=== PATIENT | female | born 1960 | race Caucasian/White ===

== ENCOUNTER 2023-12-22 12:27 | Emergency (ER) | payer MEDICAID, SELFPAY ==
[2023-12-22] VITALS (10 sets, daily range): BP systolic 150–188; BP diastolic 80–107; PULSE 82–99; RESP 11–31; TEMP 36.4; O2SAT 100
--- NOTE | 2023-12-22 12:15 | RT.EKG_ITS ---
APPROVED REPORT Exam: Resting ECG Reason for Exam: chest pain Patient Location: E HR:80 bpm ECG Measurements Heart Rate 80 AXIS WI 164 P 27 QRSd 81 QRS 40 QT 369 T 39 QTc 427 Conclusion Sinus rhythm...normal P axis, V-rate 60- 99 sinus rhtyhm, normal axis, normal intervals, non ischemic
--- NOTE | 2023-12-22 12:54 | ED.GENADUL_ITS ---
HPI General Date/Time Provider Initiated Documentation: 12/22/23 12:52 . HPI Narrative: 63-year-old female presents with anterior/epigastric chest discomfort over the last several hours nonradiating nonexertional nonpleuritic now resolving. Took aspirin before arrival. Denies history of coronary disease or thromboembolic disease. Related Data Home Medications Medication Instructions Recorded Confirmed aspirin 81 mg tablet,delayed 81 mg PO DAILY 12/22/23 12/22/23 release metoprolol succinate 50 mg capsule 50 mg PO DAILY 12/22/23 12/22/23 sprinkle, ext. release 24 hr (Kapspargo Sprinkle) Allergies Allergy/AdvReac Type Severity Reaction Status Date / Time penicillian Allergy Intermediate swelling Uncoded 12/22/23 12:38 General Stated Complaint: Chest Pain BERT: 3 Review of Systems Narrative: Review of Systems Constitutional: negative Eyes: negative ENT: negative Cardiovascular: Chest pain Respiratory: negative Gastrointestinal: negative : negative Musculoskeletal: negative Skin: negative Neurologic: negative Psych: negative Exam Narrative Exam Narrative: Physical Examination General: alert, awake, cooperative, resting comfortably, no acute distress HEENT: normocephalic, atraumatic; PERRL, EOM intact, conjunctiva normal; no nasal discharge; moist mucous membranes, oral and pharyngeal mucosa normal, tolerating secretions Neck: supple, trachea midline; full ROM Chest: normal to inspection Respiratory: normal respiratory effort, speaking in full sentences, clear to auscultation, no wheezing, rales or rhonchi Cardiac: regular rate, regular rhythm, S1S2 intact, no murmurs rubs or gallops GI: abdomen soft, non-tender, non-distended; no palpable mass or hepatosplenomegaly Skin: no lesions, rashes or trauma appreciated Neuro: AAOx3, normal speech, moving all extremities Psych: Appropriate mood and affect Course Vital Signs Vital signs: Vital Signs Temperature 36.4 C L 12/22/23 12:33 Pulse 92 H 12/22/23 12:33 Respiratory Rate 18 12/22/23 12:33 Blood Pressure 188/107 H 12/22/23 12:33 Pulse Oximetry 100 12/22/23 12:33 Temperature 36.4 C L 12/22/23 12:33 Temperature Source Temporal Artery Scan 12/22/23 12:33 Pulse 82 12/22/23 12:42 Pulse 83 12/22/23 12:42 Respiratory Rate 16 12/22/23 12:43 Respiratory Effort Normal, Non-Labored 12/22/23 12:43 Respiratory Depth Normal 12/22/23 12:43 Respiratory Pattern Normal 12/22/23 12:43 Blood Pressure 178/83 H 12/22/23 12:42 Blood Pressure Mean 119 12/22/23 12:42 Blood Pressure Position Sitting 12/22/23 12:33 Pulse Oximetry 100 12/22/23 12:33 Oxygen Delivery Method Room Air 12/22/23 12:33 Oxygen Flow Rate 0 12/22/23 12:33 Pain Level 10 12/22/23 12:43 Medical Decision Making 63-year-old female presents with epigastric and chest discomfort over the past several hours nonradiating nonexertional, no nausea vomiting diaphoresis palpitations or syncope no shortness of breath, no history of coronary disease or thromboembolic disease. Consider gastritis versus reflux versus ACS lower suspicion for aortic pathology lower suspicion for PE pneumothorax or pneumonia. Patient is already taken aspirin before arrival. Will add GI cocktail, will obtain basic labs troponin x-ray EKG. EKG normal sinus rhythm axis intervals nonischemic. Disposition pending reassessment of symptoms and results 14: 11 patient resting comfortably EKG nonischemic labs largely unremarkable, x- ray clear, patient feeling better than arrival. Awaiting second troponin. 17: 0 to resting notably no acute distress. 2 troponin negative labs unremarkable. EKG nonischemic. Consider resolving gastritis versus reflux. Versus musculoskeletal discomfort. Home care instructions and strict return precautions given Quality:SDOH Health Related Social Needs: No Data to Display PFSH All Active Problems (Updated 12/22/23 @ 17:03 by Walker Isbell MD) Chest pain (Acute) Social History Smoking/Tobacco Use Status: Never Smoking risk assessment performed?: Yes Alcohol Intake: current Alcohol Intake frequency: 3 or more drinks per day Drug use: Never Substance use type: does not use PAWSS Have you Been Recently Intoxicated or Drunk Within the Last 30 days?: No Have you Ever Experienced Previous Episodes of Alcohol Withdrawal?: No Have you ever Experienced Withdrawal Seizures?: No Have you ever Experienced Delirium Tremens(DT)s?: No Have you ever undergone Alcohol Rehabilitation Treatment (i.e, inpt ot outpatient treatment programs)?: No Have you ever Experienced Blackouts?: No Have you ever Combined Alcohol with other Downers within the last 90 days?: No Have you ever Combined Alcohol with any other Substance of Abuse during the last 90 days?: No Positive Blood Alcohol level on Presentation? [PCS.BAL]: No Evidence of Increased Autonomic Activity (i.e. HR>120, tremor, sweating, agitation, nausea)?: No Result: 0 Discharge Plan Disposition Patient Disposition: Home Condition: Improving Discharge Details Chief Complaint: Chest Pain Clinical Impression: Chest pain Primary Care Provider: Lyudmila,Local ED Provider: Walker Isbell Home Meds and New Rx's Prescriptions: No Action Kapspargo Sprinkle 50 mg capsule,sprinkle,ER 24hr 50 mg PO DAILY aspirin 81 mg tablet,delayed release (DR/EC) 81 mg PO DAILY Discharge Instructions Instructions: Chest Pain (ED) Additional Instructions: Please follow-up with your primary care physician. Please return to the emergency department for any worsening symptoms
[2023-12-22 13:02] LABS: Absolute Basophil Count 0.06 10^3/uL (0.0-0.2); Absolute Eosinophil Count 0.01 10^3/uL (0.0-0.7); Absolute Lymphocyte Count 0.89 10^3/uL (1.2-3.4); Absolute Monocyte Count 0.32 10^3/uL (0.1-0.8); Absolute Neutrophil Count 3.86 10^3/uL (1.2-6.7); Basophils % 1.2; Eosinophils % 0.2; HCT 37.8 % (36.0-46.0); HGB 13.3 g/dL (11.2-15.7); Lymphocytes % 17.3; MCHC 35.2 % (32.0-36.0); MCV 97 fL (80-95); MPV 9.3 fL (8.0-11.0); Monocytes % 6.2; Neutrophils % 75.1; Platelet Count 206 10^3/uL (130-400); RBC 3.91 10^6/uL (3.93-5.22); RDW 15.5 % (11.7-14.6); RDW-SD 54.2 fL; WBC 5.14 10^3/uL (4.4-10.8)
[2023-12-22] MEDS: Normal Saline 500 ML 1000 ML IV (13:10)
[2023-12-22] MEDS: Ondansetron 4 MG/2 ML VIAL IVP (13:10)
[2023-12-22] MEDS: Famotidine 20 MG/2 ML VIAL IVP (13:10)
[2023-12-22 13:17] LABS: INR 1.1 (0.9-1.1); PTT Activated 23.9 sec (23.6-32.8); Prothrombin Time 10.9 sec (9.1-11.1)
[2023-12-22 13:32] LABS: ALT 47 U/L (14-59); AST 184 U/L (15-37); Albumin 3.7 g/dL (3.4-5.0); Alkaline Phosphatase 207 U/L (46-116); Anion Gap 13.8 mmol/L (3-11); BUN 3 mg/dL (7-18); Bilirubin, Total 1.2 mg/dL (0.2-1.0); CO2 23.2 mmol/L (21.0-32.0); CREATININE 0.6 mg/dL (0.55-1.02); Calcium 9.1 mg/dL (8.5-10.1); Chloride 97 mmol/L (98-107); Estimated GFR 101.42 (mL/min/1.73m2); Glucose 110 mg/dL (74-106); Lipase 31 U/L (16-77); Magnesium 1.8 mg/dL (1.8-2.4); NT-proBNP 363 pg/mL (<300); Potassium 3.5 mmol/L (3.5-5.1); Sodium 134 mmol/L (136-145); Total Protein 8.1 g/dL (6.4-8.2)
--- NOTE | 2023-12-22 13:32 | DI.RAD_ITS ---
Exam(s) XR CHEST 2V PA LATERAL EXAM: XR CHEST 2V PA LATERAL CLINICAL HISTORY: central/ epigastric chest pain TECHNIQUE: 2D digital imaging was performed of the chest. Two images were obtained. PA and lateral views were obtained. COMPARISON: No exams were available for comparison FINDINGS: MEDIASTINUM: Calcified mediastinal and hilar lymph nodes are noted. HEART: Normal. PULMONARY VASCULATURE: Normal. LUNGS: There is a calcified granuloma in the left upper lobe. No focal consolidating infiltrates. PLEURAL SPACE: No pleural effusion or pneumothorax. BONE:Within normal limits for the patient's age. OTHER FINDINGS:Normal. IMPRESSION: 1. No acute pulmonary findings. 2. Findings of prior granulomatous disease. DATA REPOSITORY: RADIATION DOSE DELIVERED:
[2023-12-22 13:37] LABS: Troponin I < 50 ng/L (< or =60)
[2023-12-22 16:56] LABS: Troponin I < 50 ng/L (< or =60)
== END 2023-12-22 17:13 | disposition home or self-care (01) ==
PROVIDERS: Emergency Provider Emergency Medicine
DX: R07.9 Chest pain, unspecified (principal); R10.13 Epigastric pain
CPT/HCPCS: 80053; 83690; 93005; 96374; 96375; 99285; 71046; 83735; 83880; 84484; 85025; 85610; 85730; 93010; 99284; J2405

== ENCOUNTER 2024-08-10 12:18 | Outpatient (CLI) | payer MEDICAID, SELFPAY ==
[2024-08-15 13:11] LABS: Result Summary NEGATIVE; Specimen WB Whole Blood
== END 2024-08-10 12:19 | disposition home or self-care (01) ==
LOC: LBO 12:22
PROVIDERS: Visit Provider Internal Medicine
DX: R79.89 Other specified abnormal findings of blood chemistry (principal)
CPT/HCPCS: 36415; 81256

== ENCOUNTER → 2025-09-13 02:24 | Outpatient (CLI) | payer MEDICAID, SELFPAY ==
--- NOTE | 2025-09-13 | DI.MRI_ITS ---
Exam(s) MR ABDOMEN WO/W EXAM: MR ABDOMEN WO/W CLINICAL HISTORY: ELEVATED FERRITIN, R79.89, ABNL IRON PROFILE TESTING, R79.0 TECHNIQUE: Multiplanar multisequence MRI of the Abdomen was performed. CONTRAST MATERIAL: IV Contrast: 13 mL of Dotarem contrast administered. COMPARISON: No exams were available for comparison FINDINGS: The examination is limited due to patient motion artifact. Lung bases: Unremarkable. Liver: There is no loss of signal on the in and opposed phase images. There is normal signal of the liver. There is no evidence of a hepatic mass. Following contrast administration no enhancing hepatic masses are present. Pancreas: There is normal signal in the pancreas. No evidence of a pancreatic mass is seen. Gallbladder and Bile Ducts: There are no gallstones present. There is dilatation of the common bile duct measuring up to 1.5 cm in diameter. No choledocholithiasis is seen. No pancreatic mass is appreciated. There does appear to be a duodenal diverticulum adjacent to the common duct and pancreatic head. Adrenals: There is no evidence of an adrenal mass. Kidneys: There is no evidence of a renal mass or obstruction. Spleen: Unremarkable. Bowel: The stomach shows no evidence of bowel obstruction or bowel wall thickening. Note is made of a small diverticulum adjacent to the 2nd portion of the duodenum. Aorta: Unremarkable. Soft Tissues: Unremarkable. Bone: Age-appropriate degenerative changes are seen in the spine. Lymph Nodes: Unremarkable. IMPRESSION: 1. Unremarkable liver. There is no evidence of a hepatic mass. 2. Dilated common bile duct up to 1.5 cm in diameter. No evidence of choledocholithiasis or pancreatic head mass. 3. Small duodenal diverticulum adjacent to the 2nd portion of the duodenum. 4. The preliminary [facility] report was reviewed. DATA REPOSITORY:
[2025-09-13] MEDS: Normal Saline - Diluent 50 ML VIAL IJ (09:12)
[2025-09-13] MEDS: Gadoterate meglumine 20 ML VIAL IVP (09:12)
--- NOTE | 2025-09-13 11:20 | DI.[facility]_ITS ---
PROCEDURE INFORMATION: Exam: MR Abdomen Without and With Contrast; Liver Exam date and time: 09/13/2025 9:07 AM Age: 65 years old Clinical indication: Elevated ferritin, abnormal iron profile testing, concerned for iron overload, evaluate hepatic iron burden TECHNIQUE: Imaging protocol: MR Abdomen with and without intravenous contrast. Exam focused on the liver. Contrast material: DOTAREM; Contrast volume: 13 ml; Contrast route: INTRAVENOUS (IV); COMPARISON: CR XR CHEST 2V PA LATERAL 12/22/2023 1:18 PM FINDINGS: Liver: Normal echogenicity of the liver. No mass Gallbladder and biliary ducts: The gallbladder is distended. Dilated common bile duct measuring approximately 15 mm in diameter. No gallstones are identified. Pancreas: Normal. Kidneys: Normal kidneys. Intraperitoneal space: No free fluid. Lymph nodes: No enlarged nodes. Bones/joints: Unremarkable. No suspicious lesions. IMPRESSION: Distended gallbladder with dilated common bile duct Dictated and Authenticated by: Erma Buenrostro MD. Orderin Queenie Lopez MD
== END ==
PROVIDERS: Visit Provider Internal Medicine
DX: R79.89 Other specified abnormal findings of blood chemistry (principal); R79.0 Abnormal level of blood mineral
CPT/HCPCS: 74183